=== PATIENT | male | born 1980 | race Caucasian/White ===

== ENCOUNTER 2024-07-13 06:26 | Emergency (ER) | payer SELFPAY ==
[~2024-07-13] VITALS: Ht 177.8 cm; Wt 65.8 kg
[~2024-07-13 06:26] MED LIST: AMOXICILLIN500 MG PO; NKHM
[2024-07-13 07:20] LABS: BASO # 0.1 10*3/uL (0.0-0.1); BASO % 0.3 % (0.0-1.0); EOS % 0.1 % (1.0-4.0); HEMATOCRIT 47.9 % (42.0-52.0); LYMPH # 1.3 10*3/uL (1.3-4.4); LYMPH % 7.9 % (27.0-41.0); MEAN CELL VOLUME 90.4 fl (80.0-94.0); MEAN CORPUSCULAR HGB 31.1 pg (27.0-31.0); MEAN CORPUSCULAR HGB CONC 34.4 g/dl (33.0-37.0); MEAN PLATELET VOLUME 10.1 fl (9.6-12.3); MONO # 1.1 10*3/uL (0.1-1.0); MONO % 6.9 % (3.0-9.0); NEUT # 13.7 10*3/uL (2.3-7.9); NEUT % 84.4 % (47.0-73.0); PLATELET COUNT AUTOMATED 291 10*3/uL (130-400); WHITE BLOOD COUNT 16.3 10*3/uL (4.8-10.8)
[2024-07-13 07:39] LABS: BILIRUBIN Negative (Negative); BLOOD 3+ (Negative); CLARITY Clear (Clear); COLOR Yellow (Yellow); GLUCOSE Negative (Negative); KETONE Negative (Negative); LEUKO ESTERASE Trace (Negative); NITRITE Negative (Negative)
[2024-07-13 07:43] LABS: ALKALINE PHOSPHATASE 69 U/L (46-116); BUN 11 mg/dl (9-23); CHLORIDE 101 mmol/L (98-107); LIPASE 31 U/L (12-53); POTASSIUM 3.7 mmol/L (3.4-5.1); SGPT/ALT 13 U/L (5-49); TOTAL PROTEIN 6.8 gm/dL (6.0-8.0)
[2024-07-13 08:14] LABS: BACTERIA TRACE; RBC 21-30 rbc/hpf (0-2)
[2024-07-13] MEDS ORDERED: FLOMAX0.4 MG PO (09:25)
[2024-07-13] MEDS ORDERED: MELOXICAM15 MG PO (09:25)
== END 2024-07-13 09:41 | disposition home or self-care (01) ==
LOC: ED 06:26
PROVIDERS: Internal Medicine
DX: N20.0 Calculus of kidney (principal); Z91.040 Latex allergy status; Z98.890 Other specified postprocedural states